=== PATIENT | female | born 1970 | race Caucasian/White ===

== ENCOUNTER 2023-07-12 06:59 | Day surgery (SDC) | payer OTHER ==
[2023-07-05 09:30] LABS: HEMATOCRIT 41.5 % (36.0-45.00); HEMOGLOBIN 13.9 g/dL (12.0-15.00); MEAN CELL VOLUME 81.3 fL (80.00-100.00); MEAN CORPUSCULAR HEMOGLOBIN 27.2 pg (27.00-32.0); MEAN CORPUSCULAR HGB CONC 33.5 g/dl (32.0-36.0); PLATELET COUNT 259 K/uL (150-450); RED CELL DISTRIBUTION WIDTH 13.8 % (11.5-14.5)
[2023-07-05 09:34] LABS: URINE APPEARANCE Clear; URINE BILIRRUBIN Negative (NEGATIVE); URINE COLOR Yellow; URINE GLUCOSE Negative (NEGATIVE); URINE LEUKOCYTE Moderate; URINE NITRATE Negative; URINE PROTEIN Negative (NEGATIVE); URINE UROBILINOGEN 0.2 E.U./dl
[2023-07-05 09:39] LABS: URINE EPITHELIAL CELLS 13.5 uL (0.0-38.8); URINE RBC 10.2 uL (0.0-20.8); URINE WBC 16.5 uL (0.0-23.2)
[2023-07-05 09:55] LABS: URINE BLOOD TRACES
[2023-07-05 09:57] LABS: INR 0.98; PARTIAL THROMBOPLASTIN TIME 27.4 SECONDS (22.0-34.0); PROTHROMBIN TIME 10.3 SECONDS (9.0-11.5)
[2023-07-05 10:21] LABS: BILIRUBIN TOTAL 0.42 mg/dL (0.3-1.2); CALCIUM 9.5 mg/dL (8.5-10.1); CREATININE SERUM 0.95 mg/dL (0.55-1.02); GFR 61.77; GLOBULINA 3.8 G/DL (2.4-3.5); POTASSIUM 4.15 mEq/L (3.5-5.1); TOTAL PROTEIN 7.8 gm/dL (6.4-8.2)
== END 2023-07-12 15:30 | disposition home or self-care (01) ==
LOC: CIR.AMB 06:59
PROVIDERS: ATTEND Surgery
DX: D21.6 Benign neoplasm of connective and other soft tissue of trunk, unspecified (principal); R22.2 Localized swelling, mass and lump, trunk; Z20.822 Contact with and (suspected) exposure to COVID-19